=== PATIENT | female | born 1955 | race African-American/Black ===

== ENCOUNTER 2018-11-24 12:44 | Emergency (ER) | payer SELFPAY ==
[2018-11-24 12:56] VITALS: BP 160/80; PULSE 81; TEMP 98.3; BMI 32.5
[2018-11-24] MEDS ORDERED: KETOROLAC TROMETHAMINE 60 MG/2 ML VIAL IM ONE ×2 (13:15→13:43)
[2018-11-24] MEDS ORDERED: KETOROLAC TROMETHAMINE 60 MG/2 ML VIAL ONE (13:21)
--- NOTE | 2018-11-24 13:36 | PDOC ---
History of Present Illness - General Chief Complaint: Pain Stated Complaint: LT. HIP PAIN Time Seen by Provider: 11/24/18 13:06 - History of Present Illness Initial Comments: 11/24/18 13:36 63-year-old female with a past medical history presents for evaluation of lower back pain with posterior lateral left leg radicular symptoms recently exacerbated over the last week without any precipitating traumatic event. No loss of bowel or bladder function saddle paresthesias or systemic symptoms. Past History - Past Medical History Allergies/Adverse Reactions: Allergies Allergy/AdvReac Type Severity Reaction Status Date / Time acetaminophen [From Percocet] Allergy Unknown Verified 11/24/18 13:23 oxycodone [From Percocet] Allergy Unknown Verified 11/24/18 13:23 Home Medications: Ambulatory Orders Cyclobenzaprine HCl [Flexeril 10 mg] 10 mg PO HS PRN #10 tablet 11/24/18 Methylprednisolone [Medrol Dose Jorge] 4 mg PO ASDIR #21 tablet 11/24/18 - Suicide/Smoking/Psychosocial Hx Smoking History: Never smoked Hx Alcohol Use: No Drug/Substance Use Hx: No Review of Systems - Review of Systems Constitutional: No: Fever Musculoskeletal: Yes: Back Pain *Physical Exam - Vital Signs Last Vital Signs Temp Pulse Resp BP Pulse Ox 98.3 F 81 19 160/80 98 11/24/18 12:53 11/24/18 12:53 11/24/18 12:53 11/24/18 12:53 11/24/18 12:53 - Physical Exam Comments: 11/24/18 13:35 Lumbar spine skin color and temperature are normal. There is decreased range of motion. 5 out of 5 strength in bilateral lower extremities.Straight leg raise test is negative bilaterally. Thighs and calves are soft and nontender. There are no gross sensory motor deficits. Neurovascularly intact. Medical Decision Making - Medical Decision Making 11/24/18 13:34 No gross deficits on lumbar spine examination long-standing radicular pain recently exacerbated over the last week patient may follow-up as an outpatient with neurosurgery *DC/Admit/Observation/Transfer Diagnosis at time of Disposition: Lumbar radiculopathy - Discharge Dispostion Disposition: HOME Condition at time of disposition: Stable Decision to Admit order: No - Prescriptions Prescriptions: Cyclobenzaprine HCl [Flexeril 10 mg] 10 mg PO HS PRN #10 tablet PRN Reason: Muscle Spasms Methylprednisolone [Medrol Dose Jorge] 4 mg PO ASDIR #21 tablet - Referrals Referrals: Oscar Orona MD, [facility] [Staff Physician] - - Patient Instructions Printed Discharge Instructions: Lumbar Radiculopathy, DI for Lumbar Radiculopathy Additional Instructions: The steroid pack in the morning. Take the medication as directed. The muscle relaxers one tablet before bedtime and will make you sleepy. He may take Tylenol as directed in addition to the steroid pack. Avoid anti-inflammatory such as Advil Motrin Aleve and ibuprofen. You're given an injection of a long- acting anti-inflammatory in the emergency room do not take any anti- inflammatories. Return to the emergency room should symptoms worsen or go unresolved and follow- up with neuro or spine surgery without fail in 1-2 days for further evaluation and treatment options. - Post Discharge Activity
== END 2018-11-24 13:51 | disposition home or self-care (01) ==
LOC: JERFT 12:44
PROC: 3E0233Z Introduction of Anti-inflammatory into Muscle, Percutaneous Approach (ICD-10-PCS; principal; 2018-11-24)
DX: M54.16 Radiculopathy, lumbar region (principal)
CPT/HCPCS: 99281-25